=== PATIENT | male | born 1950 | race African-American/Black ===

== ENCOUNTER 2019-03-17 21:00 | Emergency (ER) | payer MEDICARE, OTHER ==
[~2019-03-17] VITALS: Ht 180.3 cm; Wt 81.6 kg
[~2019-03-17 21:00] MED LIST: CAPT100T2 OR; LISI-713 OR; NAPR-223 OR
[2019-03-17 22:19] LABS: Basophils # (auto) 0 uL; Basophils % (auto) 0.6 % (0.0-2.0); Eosinophils # (auto) 0.1 uL; Eosinophils % (auto) 1.5 % (0.0-7.0); Hematocrit 43.5 % (41.0-53.0); Hemoglobin 14.3 g/dL (13.5-17.5); Lymphocytes # (auto) 1.4 uL; Lymphocytes % (auto) 21.6 % (10.0-50.0); Mean Corpuscular Hemoglobin 27.6 pg (28.0-32.0); Mean Corpuscular Volume 83.7 fL (80.0-100.0); Monocytes # (auto) 0.5 uL; Monocytes % (auto) 7.7 % (0.0-12.0); Neutrophils # (auto) 4.5 uL; Neutrophils % (auto) 68.6 % (37.0-80.0); Nucleated Red Blood Cells % 0.1 %; Platelet Count (auto) 188 10^3/uL (140-450); Red Blood Cells 5.19 10^6/uL (4.5-5.90); Red Cell Distribution Width 14.5 % (11.8-14.3); White Blood Cell 6.6 10^3/uL (4.4-10.8)
[2019-03-17 22:36] LABS: BUN/Creatinine Ratio 14.9; Calcium 9.5 mg/dL (8.5-10.1); Potassium 3.7 mmol/L (3.5-5.1)
[2019-03-17 22:56] LABS: Urine Bacteria FEW /hpf (None Seen); Urine Blood Negative /uL (Negative); Urine Mucus FEW (None Seen); Urine Specific Gravity 1.021 (1.001-1.035); Urine WBC 84 /hpf (0 - 3)
[2019-03-17 23:53] LABS: INR 0.91 (0.9-1.15); Partial Thromboplastin Time 26.9 sec (23.64-32.05)
[2019-03-18 00:07] LABS: Cholesterol 217 mg/dL (< 200); HDL Cholesterol 70 mg/dL (40-59); LDL Cholesterol 112 mg/dL (< 100); Triglycerides 98 mg/dL (< 150)
[2019-03-18 00:11] LABS: Alcohol, Urine < 3.0 mg/dL (0-5); Amphetamine Screen, Urine NEGATIVE (NEGATIVE); Barbiturate Scree,Urine NEGATIVE (NEGATIVE); Benzodiazephine Screen, Urine NEGATIVE (NEGATIVE); Cannabinoid Screen, Urine NEGATIVE (NEGATIVE); Cocaine Screen, Urine NEGATIVE (NEGATIVE); Opiate Scree,Urine NEGATIVE (NEGATIVE); Phencyclidine Screen, Urine NEGATIVE (NEGATIVE)
[2019-03-18] MEDS ORDERED: IOHEXOL 350 MG/ML 100ML IJ ONE (01:13)
[2019-03-18 02:00] VITALS: BP 141/79
== END 2019-03-18 02:42 | disposition home or self-care (01) ==
LOC: ER 21:03
DX: R42 Dizziness and giddiness (principal); R51 Headache; I10 Essential (primary) hypertension
CPT/HCPCS: 36415; 70450; 71045; 71275; 80048; 80061; 80307; 81001; 82962; 83880; 84484; 85025; 85379; 85610; 85730; 93005; 99284; Q9967

== ENCOUNTER 2019-10-11 13:53 | Inpatient (IN) | payer BC, OTHER ==
[~2019-10-11] VITALS: Ht 180.3 cm; Wt 89.8 kg
[2019-10-11 15:36] LABS: Basophils # (auto) 0.1 10 ^3/uL (0-0.2); Basophils % (auto) 1.1 % (0.0-2.0); Eosinophils # (auto) 0.3 10 ^3/uL (0-0.8); Eosinophils % (auto) 4.8 % (0.0-7.0); Hematocrit 38.5 % (41.0-53.0); Hemoglobin 12.3 g/dL (13.5-17.5); Lymphocytes # (auto) 0.9 10 ^3/uL (0.4-5.4); Lymphocytes % (auto) 15.8 % (10.0-50.0); Mean Corpuscular Hemoglobin 27.1 pg (28.0-32.0); Mean Corpuscular Volume 84.5 fL (80.0-100.0); Monocytes # (auto) 0.7 10 ^3/uL (0-1.3); Monocytes % (auto) 12.9 % (0.0-12.0); Neutrophils # (auto) 3.6 10 ^3/uL (1.6-8.6); Neutrophils % (auto) 65.4 % (37.0-80.0); Nucleated Red Blood Cells % 0.1 %; Platelet Count (auto) 146 10^3/uL (140-450); Red Blood Cells 4.55 10^6/uL (4.5-5.90); Red Cell Distribution Width 15.3 % (11.8-14.3); White Blood Cell 5.5 10^3/uL (4.4-10.8)
[2019-10-11 15:48] LABS: Calcium 9.3 mg/dL (8.5-10.1); Potassium 3.7 mmol/L (3.5-5.1)
[2019-10-11 15:53] LABS: BUN/Creatinine Ratio 14.6; Bilirubin, Total 0.8 mg/dL (0.2-1.0); Total Protein 7.2 g/dL (6.4-8.2)
[2019-10-11] MEDS ORDERED: CLOP75TA28 PO (15:59)
[2019-10-11] MEDS ORDERED: CAR3125T OR (15:59)
[2019-10-11] MEDS ORDERED: ASPI-231 PO (15:59)
[2019-10-11] MEDS ORDERED: cefTRIAXone 1GM/50ML D5W 50 ML IV ONE (16:15)
[2019-10-11 16:55] LABS: INR 1.03 (0.9-1.15); Partial Thromboplastin Time 26.2 sec (23.64-32.05)
[2019-10-11] MEDS ORDERED: ONDANSETRON HCL 4 MG/2 ML VIAL IV PRN (17:15)
[2019-10-11] MEDS ORDERED: ENOXAPARIN SOD 80 MG/0.8ML SYRINGE SC ONE (17:15)
[2019-10-11] MEDS ORDERED: ALUM & MAG HYDROX-SIMETH LIQ(MAALOX) 30 ML PO PRN (17:15)
[2019-10-11] MEDS ORDERED: MORPHINE SULF INJ 2 MG/ML SYRINGE 1ML IV PRN ×2 (17:15)
[2019-10-11] MEDS ORDERED: HYDROcodone-ACET 5/325MG TAB PO PRN (17:15)
[2019-10-11] MEDS ORDERED: DOCUSATE SOD 100 MG CAP PO PRN (17:15)
[2019-10-11] MEDS ORDERED: LORazepam 0.5 MG TAB PO PRN (17:15)
[2019-10-11] MEDS ORDERED: NITROGLYCERIN 0.4 MG SL TAB SL PRN (17:15)
[2019-10-11] MEDS ORDERED: FUROSEMIDE 20 MG/2 ML VIAL IV ONE (17:15)
[2019-10-11] MEDS ORDERED: FURO40TA4 PO (17:23)
[2019-10-11] MEDS ORDERED: ATOR1TAB PO (17:25)
[2019-10-11] MEDS ORDERED: LOSA25TA8 PO (17:25)
[2019-10-11] MEDS ORDERED: ZOLP10TA PO (17:26)
[2019-10-11 17:43] LABS: Cholesterol 126 mg/dL (< 200)
[2019-10-11 17:45] LABS: HDL Cholesterol 40 mg/dL (40-59); LDL Cholesterol 71 mg/dL (< 100); Triglycerides 95 mg/dL (< 150)
[2019-10-11] MEDS: SODIUM CHLORIDE 0.9% 1,000 ML IV SCH (18:23)
[2019-10-11 19:00] VITALS: BP 152/103
--- NOTE | 2019-10-11 19:30 | NUR ---
Opening Shift Note: A&Ox4, resting in bed. Currently on 2LO2 via NC; patient does not wear at home; pain level 0/10; ambulates independently without assistive devices. IV 20 g in left AC running NS @ 60 ml/hr. Patient voids via urinal. Skin intact. Pending cardiology consultation and echo. Admission order present for telemetry. Will continue to round prn.
--- NOTE | 2019-10-11 20:30 | NUR ---
UA/urine culture/drug screen sent to lab via [employer] system.
[2019-10-11 20:52] LABS: Urine Bacteria FEW /hpf (None Seen); Urine Blood Negative /uL (Negative); Urine Hyaline Cast FEW /lpf (0 - 2); Urine Specific Gravity 1.007 (1.001-1.035); Urine WBC 29 /hpf (0 - 3)
[2019-10-11 21:00] VITALS: BP 138/91
[2019-10-11 21:04] LABS: Amphetamine Screen, Urine NEGATIVE (NEGATIVE); Barbiturate Scree,Urine NEGATIVE (NEGATIVE); Benzodiazephine Screen, Urine NEGATIVE (NEGATIVE); Cannabinoid Screen, Urine NEGATIVE (NEGATIVE); Cocaine Screen, Urine NEGATIVE (NEGATIVE); Opiate Scree,Urine NEGATIVE (NEGATIVE); Phencyclidine Screen, Urine NEGATIVE (NEGATIVE)
[2019-10-11 21:09] LABS: Alcohol, Urine < 3.0 mg/dL (0-10)
--- NOTE | 2019-10-11 21:29 | NUR ---
Telemetry admit from ER ROBERTO LIN admitted to Telemetry unit after SBAR received. Patient oriented to Tg melgar RN, unit, room, bed, and unit policies regarding patient care and visiting hours. Patient now on continuous telemetry monitoring, tele box # 39 and telemetry reading on arrival to unit is SR 90. Patient placed on bedside oxygen, weighed by bed scale and encouraged to call if they need something. All questions and concerns addressed, patient verbalized understanding. Note: Came per wheelchair not in respiratory distress, placed in the bed comfortably, vital signs checked.
--- NOTE | 2019-10-11 21:35 | NUR ---
Report given to Aylin TRENT. Telemetry admission to room 218B. Patient transported via wheelchair by tool maintenance technician.
[2019-10-11] MEDS: ATORVASTATIN 20 MG TAB PO SCH (21:53)
[2019-10-11 22:00] VITALS: BP_SYST 124; BP_SYST 132; BP_DIAS 73; BP_DIAS 84
[2019-10-11] MEDS: CARVEDILOL 3.125 MG TAB PO SCH (22:03)
[2019-10-12 05:00] VITALS: BP 125/82
[2019-10-12] MEDS: FUROSEMIDE 20 MG/2 ML VIAL IV SCH ×2 (06:24→17:24)
[2019-10-12 06:53] LABS: Basophils # (auto) 0 10 ^3/uL (0-0.2); Basophils % (auto) 0.7 % (0.0-2.0); Eosinophils # (auto) 0.3 10 ^3/uL (0-0.8); Eosinophils % (auto) 4.6 % (0.0-7.0); Lymphocytes # (auto) 1.1 10 ^3/uL (0.4-5.4); Lymphocytes % (auto) 20.3 % (10.0-50.0); Mean Corpuscular Hemoglobin 27.2 pg (28.0-32.0); Mean Corpuscular Hgb Conc. 32.4 g/dL (32.0-36.0); Mean Corpuscular Volume 84.1 fL (80.0-100.0); Monocytes # (auto) 0.9 10 ^3/uL (0-1.3); Monocytes % (auto) 15.5 % (0.0-12.0); Neutrophils # (auto) 3.3 10 ^3/uL (1.6-8.6); Neutrophils % (auto) 58.9 % (37.0-80.0); Nucleated Red Blood Cells % 0.1 %; Platelet Count (auto) 133 10^3/uL (140-450); Red Blood Cells 4.04 10^6/uL (4.5-5.90); White Blood Cell 5.6 10^3/uL (4.4-10.8)
[2019-10-12 07:13] LABS: Potassium 3.4 mmol/L (3.5-5.1)
[2019-10-12 07:17] LABS: INR 1.05 (0.9-1.15); Partial Thromboplastin Time 31.3 sec (23.64-32.05)
[2019-10-12 07:31] LABS: Albumin 2.4 g/dL (3.4-5.0); Bilirubin, Total 0.7 mg/dL (0.2-1.0); Calcium 8.7 mg/dL (8.5-10.1); Total Protein 6.2 g/dL (6.4-8.2)
--- NOTE | 2019-10-12 07:35 | NUR ---
Report given to Morena Joshi, patient is resting no respiratory distress.
--- NOTE | 2019-10-12 07:40 | NUR ---
Opening Shift Note Assumed care of patient, awake and alert. No S/S of distress/SOB or pain. Updated on POC and instructed to call for assistance PRN. Bed locked in lowest position, side rails up x2, call light within reach. Safety precautions in place. will continue to monitor for changes Q1hr and PRN.
[2019-10-12 09:00] VITALS: BP 132/84
[2019-10-12] MEDS: LOSARTAN POTASSIUM 25 MG TAB PO SCH (09:14)
[2019-10-12] MEDS: CLOPIDOGREL BISULFATE 75 MG TAB PO SCH (09:14)
[2019-10-12] MEDS: ASPirin-EC 81 mg tab PO SCH (09:14)
[2019-10-12] MEDS: cefTRIAXone 1GM/50ML D5W 50 ML IV SCH (09:14)
[2019-10-12] MEDS: AZITHROMYCIN 500MG/ 250ML 250 ML IV SCH (09:15)
[2019-10-12] MEDS: SODIUM CHLORIDE 0.9% 1,000 ML IV SCH (09:15)
[2019-10-12] MEDS: CARVEDILOL 3.125 MG TAB PO SCH ×2 (09:15→21:55)
[2019-10-12] MEDS ORDERED: LISINOPRIL 5 MG TAB PO SCH (10:00)
[2019-10-12] MEDS ORDERED: POTASSIUM CHL 10 Meq TABLET PO ONE (10:15)
[2019-10-12] MEDS: Glucerna Carbsteady SHAKE Vanilla 8oz PO SCH ×2 (11:53→17:25)
[2019-10-12 13:00] VITALS: BP 122/76
--- NOTE | 2019-10-12 14:14 | NUR ---
Nutrition Assessment Notes Please refer to link for full assessment notes. Est Energy needs: 9070-5113 kcals (23-25 kcal/kgBW) d/t Stg CKD Est Protein needs: 55-69 gms/day (0.6-0.75 gm/kgBW) d/t Stg CKD Will continue to monitor and reassess prn. Addendum: 10/12/19 at [address] Amended: Links added. Addendum: 10/12/19 at [address] Recommendation Suggest a Cardiac 2gNa,lowfat,lowphos diet
[2019-10-12 17:00] VITALS: BP 127/77
[2019-10-12] MEDS ORDERED: metOLazone 5 MG TAB PO ONE (17:00)
--- NOTE | 2019-10-12 18:54 | NUR ---
PATIENT ROUNDS PATIENT SITTING UP EATING DINNER ON THE TELEPHONE, NO S/S OF DISTRESS. WILL ENDORSE CARE TO PASSENGER ATTENDANT RN.
--- NOTE | 2019-10-12 20:00 | NUR ---
Opening Shift Note Assumed care of patient, awake and alert. No S/S of distress/SOB or pain. Instructed on POC and to call for assist PRN, will continue to monitor for changes Q1hr and PRN.
[2019-10-12] MEDS: ATORVASTATIN 20 MG TAB PO SCH (21:22)
[2019-10-12] MEDS: POTASSIUM CHLORIDE 8 MEQ TAB PO SCH (21:23)
[2019-10-13 00:48] VITALS: BP 140/87
[2019-10-13] MEDS: FUROSEMIDE 20 MG/2 ML VIAL IV SCH ×2 (05:33→17:52)
[2019-10-13 06:02] VITALS: BP 111/74
[2019-10-13 07:14] LABS: Basophils # (auto) 0.1 10 ^3/uL (0-0.2); Basophils % (auto) 1.2 % (0.0-2.0); Eosinophils # (auto) 0.3 10 ^3/uL (0-0.8); Eosinophils % (auto) 5.9 % (0.0-7.0); Hematocrit 37.1 % (41.0-53.0); Hemoglobin 12.1 g/dL (13.5-17.5); Lymphocytes # (auto) 1.1 10 ^3/uL (0.4-5.4); Lymphocytes % (auto) 22.5 % (10.0-50.0); Mean Corpuscular Hemoglobin 27.2 pg (28.0-32.0); Mean Corpuscular Hgb Conc. 32.6 g/dL (32.0-36.0); Mean Corpuscular Volume 83.6 fL (80.0-100.0); Monocytes # (auto) 0.6 10 ^3/uL (0-1.3); Monocytes % (auto) 13.3 % (0.0-12.0); Neutrophils # (auto) 2.8 10 ^3/uL (1.6-8.6); Neutrophils % (auto) 57.1 % (37.0-80.0); Nucleated Red Blood Cells % 0.1 %; Platelet Count (auto) 145 10^3/uL (140-450); Red Blood Cells 4.44 10^6/uL (4.5-5.90); Red Cell Distribution Width 15.2 % (11.8-14.3); White Blood Cell 4.8 10^3/uL (4.4-10.8)
--- NOTE | 2019-10-13 07:28 | NUR ---
Report given to Morena Joshi, patient is resting no distress.
[2019-10-13 07:44] LABS: BUN/Creatinine Ratio 14.7; Calcium 9.3 mg/dL (8.5-10.1)
[2019-10-13] MEDS: Glucerna Carbsteady SHAKE Vanilla 8oz PO SCH ×3 (08:00→17:52)
[2019-10-13 09:00] VITALS: BP 118/71
[2019-10-13] MEDS: cefTRIAXone 1GM/50ML D5W 50 ML IV SCH (09:03)
[2019-10-13] MEDS: AZITHROMYCIN 500MG/ 250ML 250 ML IV SCH (09:03)
[2019-10-13] MEDS: CLOPIDOGREL BISULFATE 75 MG TAB PO SCH (09:03)
[2019-10-13] MEDS: POTASSIUM CHLORIDE 8 MEQ TAB PO SCH ×3 (09:03→21:44)
[2019-10-13] MEDS: ASPirin-EC 81 mg tab PO SCH (09:04)
[2019-10-13] MEDS: CARVEDILOL 3.125 MG TAB PO SCH ×2 (09:05→21:40)
[2019-10-13] MEDS: LOSARTAN POTASSIUM 25 MG TAB PO SCH (09:05)
--- NOTE | 2019-10-13 09:27 | NUR ---
IV removal IV DC'd with clean sterile technique, catheter fully intact. Pressure dressing applied to site. Patient tolerated well. NOTE: Iv painful
--- NOTE | 2019-10-13 09:28 | NUR ---
IV insertion IV access obtained, via clean sterile technique by inserting 22 gauge catheter at right hand after 1 attempts. IV secured properly.No trauma to site. Patient tolerated procedure well.
[2019-10-13] MEDS ORDERED: POTASSIUM EFFERVESENT TAB 25 MEQ PO ONE (10:45)
[2019-10-13] MEDS ORDERED: OPTISON 3ml Vial for INJ IV ONE (10:59)
[2019-10-13 13:00] VITALS: BP 86/75
[2019-10-13 17:00] VITALS: BP 102/71
--- NOTE | 2019-10-13 18:44 | NUR ---
PATIENT ROUNDS PATIENT SITTING UP EATING DINNER, NO S/S OF DISTRESS. WILL ENDORSE CARE TO MANUFACTURING CLERK RN.
--- NOTE | 2019-10-13 20:00 | NUR ---
Opening Shift Note Assumed care of patient, awake and alert. No S/S of distress/SOB or pain. Instructed on POC and to call for assist PRN, will continue to monitor for changes Q1hr and PRN. bed in low position and call light within reach
[2019-10-13] MEDS: ATORVASTATIN 20 MG TAB PO SCH (21:40)
[2019-10-13 22:00] VITALS: BP 98/53
[2019-10-14 05:00] VITALS: BP 99/70
[2019-10-14 05:37] LABS: Basophils # (auto) 0.1 10 ^3/uL (0-0.2); Basophils % (auto) 1.5 % (0.0-2.0); Eosinophils # (auto) 0.2 10 ^3/uL (0-0.8); Hematocrit 34.3 % (41.0-53.0); Hemoglobin 11.2 g/dL (13.5-17.5); Lymphocytes # (auto) 1.2 10 ^3/uL (0.4-5.4); Lymphocytes % (auto) 26.3 % (10.0-50.0); Mean Corpuscular Hemoglobin 27.4 pg (28.0-32.0); Mean Corpuscular Hgb Conc. 32.6 g/dL (32.0-36.0); Monocytes # (auto) 0.7 10 ^3/uL (0-1.3); Monocytes % (auto) 15.8 % (0.0-12.0); Neutrophils # (auto) 2.3 10 ^3/uL (1.6-8.6); Neutrophils % (auto) 51.4 % (37.0-80.0); Platelet Count (auto) 146 10^3/uL (140-450); Red Blood Cells 4.08 10^6/uL (4.5-5.90); Red Cell Distribution Width 14.9 % (11.8-14.3); White Blood Cell 4.5 10^3/uL (4.4-10.8)
[2019-10-14 05:58] LABS: Calcium 8.7 mg/dL (8.5-10.1); Potassium 3.1 mmol/L (3.5-5.1)
[2019-10-14] MEDS: FUROSEMIDE 20 MG/2 ML VIAL IV SCH (06:00)
[2019-10-14 06:05] LABS: BUN/Creatinine Ratio 19.2
--- NOTE | 2019-10-14 07:19 | NUR ---
REPORT GIVEN TO DAYSHIFT RN. PATIENT DENIES SOB DISTRESS OR PAIN
[2019-10-14] MEDS: Glucerna Carbsteady SHAKE Vanilla 8oz PO SCH ×2 (08:00→12:00)
[2019-10-14 09:00] VITALS: BP 109/75
[2019-10-14] MEDS ORDERED: POTASSIUM EFFERVESENT TAB 25 MEQ PO ONE (09:15)
[2019-10-14] MEDS: cefTRIAXone 1GM/50ML D5W 50 ML IV SCH (09:56)
[2019-10-14] MEDS: POTASSIUM CHLORIDE 8 MEQ TAB PO SCH (10:00)
[2019-10-14] MEDS: ASPirin-EC 81 mg tab PO SCH (10:00)
[2019-10-14] MEDS: LOSARTAN POTASSIUM 25 MG TAB PO SCH (10:00)
[2019-10-14] MEDS: AZITHROMYCIN 500MG/ 250ML 250 ML IV SCH (10:01)
[2019-10-14] MEDS: CLOPIDOGREL BISULFATE 75 MG TAB PO SCH (10:01)
[2019-10-14] MEDS: CARVEDILOL 3.125 MG TAB PO SCH (10:01)
--- NOTE | 2019-10-14 13:00 | NUR ---
Discharge home Discharge instructions given as ordered. Encourage to follow up with PMD as instructed. All questions and concerns addressed. Patient verbalized understanding. Medication reconciliation form completed and copy given to patient. IV removed with catheter intact, pressure dressing applied. Telemetry unit returned to ICU. Patient taken to main lobby via wheelchair with all personal belongings, accompanied by staff. Patient is to wait for in front lobby. No distress noted at time of departure.
== END 2019-10-14 13:00 | disposition home or self-care (01) | DRG 280 ==
LOC: ER 13:53 → TELE 13:54 → TELE-CENTR 21:33
PROVIDERS: ADMIT Hospitalist; ATTEND Internal Medicine
DX: I13.0 Hypertensive heart and chronic kidney disease with heart failure and stage 1 through stage 4 chronic kidney disease, or unspecified chronic kidney disease (principal); I21.4 Non-ST elevation (NSTEMI) myocardial infarction; J18.9 Pneumonia, unspecified organism; J96.01 Acute respiratory failure with hypoxia; I50.43 Acute on chronic combined systolic (congestive) and diastolic (congestive) heart failure; N17.0 Acute kidney failure with tubular necrosis; E44.0 Moderate protein-calorie malnutrition; I24.9 Acute ischemic heart disease, unspecified; N18.3 Chronic kidney disease, stage 3 (moderate); E78.5 Hyperlipidemia, unspecified; D63.1 Anemia in chronic kidney disease; D50.9 Iron deficiency anemia, unspecified; Z20.828 Contact with and (suspected) exposure to other viral communicable diseases; E87.6 Hypokalemia; I25.10 Atherosclerotic heart disease of native coronary artery without angina pectoris; Z95.5 Presence of coronary angioplasty implant and graft; Z82.49 Family history of ischemic heart disease and other diseases of the circulatory system; Z79.899 Other long term (current) drug therapy; Z88.5 Allergy status to narcotic agent; Z79.82 Long term (current) use of aspirin; Z68.28 Body mass index [BMI] 28.0-28.9, adult
CPT/HCPCS: 36415; 36600; 71046; 80048; 80053; 80061; 80307; 81001; 82805; 83036; 83605; 83735; 83880; 84100; 84443; 84484; 85025; 85610; 85730; 87040; 87081; 87086; 93005; 93306; 93971; 96365; 96366; 96372; 96375; G0378; J0696; Q9956

== ENCOUNTER 2019-11-04 21:28 | Inpatient (IN) | payer BC, OTHER ==
[~2019-11-04] VITALS: Ht 180.3 cm; Wt 81.6 kg
[2019-11-04] MEDS ORDERED: levoFLOXacin 750MG 150 ML IV ONE (23:00)
[2019-11-04 23:20] LABS: Basophils # (auto) 0 10 ^3/uL (0-0.2); Basophils % (auto) 0.9 % (0.0-2.0); Eosinophils # (auto) 0.1 10 ^3/uL (0-0.8); Eosinophils % (auto) 1.3 % (0.0-7.0); Hematocrit 38.4 % (41.0-53.0); Hemoglobin 12.2 g/dL (13.5-17.5); Lymphocytes # (auto) 1.4 10 ^3/uL (0.4-5.4); Lymphocytes % (auto) 28.9 % (10.0-50.0); Mean Corpuscular Hemoglobin 26.9 pg (28.0-32.0); Mean Corpuscular Hgb Conc. 31.9 g/dL (32.0-36.0); Mean Corpuscular Volume 84.5 fL (80.0-100.0); Monocytes # (auto) 0.5 10 ^3/uL (0-1.3); Monocytes % (auto) 11.4 % (0.0-12.0); Neutrophils # (auto) 2.7 10 ^3/uL (1.6-8.6); Neutrophils % (auto) 57.5 % (37.0-80.0); Nucleated Red Blood Cells % 0.1 %; Platelet Count (auto) 177 10^3/uL (140-450); Red Blood Cells 4.55 10^6/uL (4.5-5.90); Red Cell Distribution Width 15.9 % (11.8-14.3); White Blood Cell 4.7 10^3/uL (4.4-10.8)
[2019-11-04 23:29] LABS: Urine Bacteria FEW /hpf (None Seen); Urine Blood Negative /uL (Negative); Urine Hyaline Cast FEW /lpf (0 - 2); Urine WBC 31 /hpf (0 - 3)
[2019-11-04 23:43] LABS: Albumin 3.3 g/dL (3.4-5.0); BUN/Creatinine Ratio 12.2; Calcium 9.2 mg/dL (8.5-10.1)
[2019-11-04 23:44] LABS: INR 1.01 (0.9-1.15)
[2019-11-04 23:48] LABS: Bilirubin, Total 1.1 mg/dL (0.2-1.0); Total Protein 7.5 g/dL (6.4-8.2)
[2019-11-05] MEDS ORDERED: ACETAMINOPHEN 325 MG TAB PO PRN (00:45)
[2019-11-05] MEDS ORDERED: NITROGLYCERIN 0.4 MG SL TAB SL PRN (00:45)
[2019-11-05] MEDS ORDERED: MORPHINE SULF INJ 2 MG/ML SYRINGE 1ML IV PRN (00:45)
[2019-11-05] MEDS ORDERED: FUROSEMIDE 40 MG/4 ML VIAL IV ONE (00:45)
[2019-11-05] MEDS ORDERED: ONDANSETRON HCL 4 MG/2 ML VIAL IV PRN (00:45)
[2019-11-05] MEDS ORDERED: TEMAZEPAM 15 MG CAP PO PRN (00:45)
[2019-11-05] MEDS ORDERED: ALBUMIN 25% 100 ML IV ONE ×2 (01:42→01:45)
[2019-11-05] MEDS: FUROSEMIDE 20 MG/2 ML VIAL IV SCH ×2 (06:38→18:46)
--- NOTE | 2019-11-05 08:25 | NUR ---
Telemetry admit from ER ROBERTO LIN admitted to Telemetry unit after SBAR received. Patient oriented to FUENTES EVANGELISTA, primary RN, unit, room, bed, and unit policies regarding patient care and visiting hours. Patient now on continuous telemetry monitoring, tele box # 20 and telemetry reading on arrival to unit is ST. Patient placed on bedside oxygen, weighed by bedscale and encouraged to call if they need something. All questions and concerns addressed, patient verbalized understanding.
[2019-11-05 09:00] VITALS: BP 113/80
[2019-11-05] MEDS ORDERED: PANTOPRAZOLE 40 MG TAB PO SCH (10:00)
[2019-11-05] MEDS ORDERED: CLOPIDOGREL BISULFATE 75 MG TAB PO SCH (10:00)
[2019-11-05] MEDS ORDERED: ASPirin 81 mg TAB PO SCH (10:00)
[2019-11-05] MEDS ORDERED: LOSARTAN POTASSIUM 25 MG TAB PO SCH (10:00)
[2019-11-05 12:42] VITALS: BP 95/66
[2019-11-05 16:55] VITALS: BP 111/73
--- NOTE | 2019-11-05 19:02 | NUR ---
PT REQUESTING TO LEAVE AMA. STATED HE DOES NOT WANT TO WAIT FOR OUTSIDE LAB COVID RESULTS. WILL SIGN AMA FORM.
--- NOTE | 2019-11-05 19:43 | NUR ---
AMA Note ROBERTO LIN states they want to leave the hospital Against Medical Advice (AMA). Patient encouraged to stay for further treatment/stabilization. Patient advised of the risks and benefits of leaving AMA. Patient verbalized understanding. Day RN removed tele monitor and IV. Patient encouraged to return to the ER if symptoms do not improve or worsen. Charge nurse and metal cans supervisor aware.
[2019-11-05] MEDS ORDERED: levoFLOXacin 250MG 50 ML IV SCH (21:00)
[2019-11-05] MEDS ORDERED: CARVEDILOL 3.125 MG TAB PO SCH (22:00)
[2019-11-05] MEDS ORDERED: ATORVASTATIN 20 MG TAB PO SCH (22:00)
== END 2019-11-05 19:45 | disposition left against medical advice (07) | DRG 302 ==
LOC: ER 21:31 → TELE 21:32 → TELE-EAST 11-05 09:13
PROVIDERS: ADMIT Nurse Practitioner; ATTEND Internal Medicine
DX: I25.10 Atherosclerotic heart disease of native coronary artery without angina pectoris (principal); I50.43 Acute on chronic combined systolic (congestive) and diastolic (congestive) heart failure; J18.9 Pneumonia, unspecified organism; I13.0 Hypertensive heart and chronic kidney disease with heart failure and stage 1 through stage 4 chronic kidney disease, or unspecified chronic kidney disease; E78.5 Hyperlipidemia, unspecified; D63.8 Anemia in other chronic diseases classified elsewhere; Z53.29 Procedure and treatment not carried out because of patient's decision for other reasons; N18.3 Chronic kidney disease, stage 3 (moderate); Z82.49 Family history of ischemic heart disease and other diseases of the circulatory system; Z95.5 Presence of coronary angioplasty implant and graft; Z88.5 Allergy status to narcotic agent; Z20.828 Contact with and (suspected) exposure to other viral communicable diseases
CPT/HCPCS: 36415; 71045; 80053; 81001; 83605; 83880; 84484; 85025; 85379; 85610; 85730; 87040; 87081; 93005; 96365; 96366; G0378; J1956; P9047

== ENCOUNTER → 2019-11-04 | Emergency (ER) | payer BC, OTHER ==
[~2019-11-04] MED LIST changes: +ASPI-231 PO; +ATOR1TAB PO; -CAPT100T2 OR; +CAR3125T OR; +CLOP75TA28 PO; +FURO40TA4 PO; -LISI-713 OR; +LOSA25TA8 PO; -NAPR-223 OR; +ZOLP10TA PO
== END | disposition left against medical advice (07) ==
LOC: ER 18:57
DX: R06.02 Shortness of breath (principal); Z53.21 Procedure and treatment not carried out due to patient leaving prior to being seen by health care provider